=== PATIENT | male | born 1990 | race African-American/Black ===

== ENCOUNTER → 2020-08-11 | Outpatient (CLI) | payer OTHER | LOC: M RAD 13:20 | PROVIDERS: ATTEND Physician Assistant | DX: R80.9 Proteinuria, unspecified (principal) ==

== ENCOUNTER → 2020-08-25 | Outpatient (CLI) | payer OTHER ==
--- NOTE | 2020-08-25 09:35 | REP ---
INDICATION: STENOSIS. COMPARISON: None. TECHNIQUE: Urinary tract sonography. Renal artery Doppler examination. FINDINGS: Scanning at the level of the urinary bladder shows no abnormality. Renal cortical echogenicity pattern is normal bilaterally and contours are smooth. There is no evidence of hydronephrosis or renal mass on either side. There is a 0.7 cm cyst in the lower pole the right kidney.. The right kidney measures 10.4 x 5.8 x 3.9 cm. Left renal dimensions are 10.4 x 4.7 x 6.5 cm. Renal artery Doppler data: Peak systolic flow velocity in the abdominal aorta is measured at 114 centimeters/second. Peak systolic flow velocity in the right main renal artery is measured at 137 centimeters/second and that in the left at 99 centimeters/second. These values are normal. Renal to a or deck flow velocity ratios are normal at 1.2 on the right and 0.9 on the left. Resistive indices and acceleration times are measured in the intralobar arteries of the upper, mid, and lower pole bilaterally. These values are normal. IMPRESSION: There is a small cyst in the lower pole right kidney. Otherwise normal urinary tract sonography. There is no evidence of renal artery stenosis or occlusion on Doppler ultrasound. <Electronically signed by Kai Mancini > 08/25/20 [id number]
== END ==
LOC: M RAD 07:56
PROVIDERS: ATTEND Physician Assistant
DX: R80.9 Proteinuria, unspecified (principal)